=== PATIENT | male | born 1935 | race Caucasian/White ===

== ENCOUNTER 2017-03-07 09:22 | Emergency (ER) | payer MEDICARE ==
[2017-03-07 09:24] VITALS: BMI 25.0
[2017-03-07 09:25] VITALS: BP 165/71; PULSE 59; RESP 19; TEMP 98.6; O2SAT 98
[2017-03-07] MEDS ORDERED: Liquid Adhesive TOP STA (09:42)
--- NOTE | 2017-03-07 10:03 | ED PDOC ---
HPI: Trauma/Fall - HPI Time Seen by Provider: 03/07/17 09:33 Chief Complaint (Provider): fall History Per: Patient History/Exam Limitations: no limitations Onset/Duration Of Symptoms: Mins (prior to arrival ) Additional Complaint(s): Carlton Guallpa is an 81 year old male, with a previous medical history of lung cancer and hypertension, who presents to the ED via EMS after sustaining a fall prior to arrival. Patient denies any loss of consciousness, headache, visual changes, changes in gait, changes in speech, nausea, vomiting, numbness or tingling. Patient reports tetanus is up to date. Patient reports tripping and falling on a parked car sustaining lacerations to the head. PMD: none provided Past Medical History Reviewed: Historical Data, Nursing Documentation, Vital Signs Vital Signs: Last Vital Signs Temp 98.6 F 03/07/17 09:24 Pulse 59 L 03/07/17 09:24 Resp 19 03/07/17 09:24 BP 165/71 H 03/07/17 09:24 Pulse Ox 98 03/07/17 10:24 - Medical History PMH: HTN Other PMH: lung cancer - Family History Family History: States: Unknown Family Hx - Allergies Allergies/Adverse Reactions: Allergies Allergy/AdvReac Type Severity Reaction Status Date / Time No Known Allergies Allergy Verified 03/07/17 09:41 Review of Systems ROS Statement: Except As Marked, All Systems Reviewed And Found Negative Eyes: Negative for: Vision Change Gastrointestinal: Negative for: Nausea, Vomiting Neurological: Negative for: Weakness, Numbness, Change in Speech, Confusion, Headache Physical Exam - Reviewed Nursing Documentation Reviewed: Yes Vital Signs Reviewed: Yes - Physical Exam Appears: Positive for: Well, Non-toxic, No Acute Distress Head Exam: Positive for: NORMAL INSPECTION, NORMOCEPHALIC. Negative for: ATRAUMATIC (4 cm horizontal laceration right side of the forehead. 1 cm superficial laceration underneath first laceration. superficial abrasions noted to the right cheek with no tenderness ) Skin: Positive for: Normal Color, Warm, Dry Eye Exam: Positive for: Normal appearance, EOMI, PERRL. Negative for: Nystagmus Neck: Positive for: Normal, Painless ROM, Supple Cardiovascular/Chest: Positive for: Regular Rate, Rhythm Respiratory: Positive for: CNT, Normal Breath Sounds Gastrointestinal/Abdominal: Positive for: Normal Exam, Bowel Sounds, Soft. Negative for: Tenderness Extremity: Positive for: Normal ROM (of all extremities ), Capillary Refill (< 2 seconds), Other (superficial abrasion to the right knee with no tenderness). Negative for: Deformity Neurologic/Psych: Positive for: Alert, bread distributor II-XII (intact ), Oriented, Cerebellar Tests (good). Negative for: Motor/Sensory Deficits - ECG O2 Sat by Pulse Oximetry: 98 (ra) Pulse Ox Interpretation: Normal Medical Decision Making Medical Decision Making: Initial Impression: head injury and laceration Initial Plan: * CT Head w/o contrast * CT cervical spin w/o contrast * dermabond * reevaluation 10:32 CT head FINDINGS: HEMORRHAGE: No intracranial hemorrhage. BRAIN: Small foci of encephalomalacia at the bilateral basal ganglia are larger and more on the right suggestive of old lacunar infarcts. Moderate atrophy. Moderate white matter changes suggestive but nonspecific for chronic microvascular ischemic disease. VENTRICLES: Unremarkable. No hydrocephalus. CALVARIUM: Unremarkable. PARANASAL SINUSES: Unremarkable as visualized. No significant inflammatory changes. MASTOID AIR CELLS: Unremarkable as visualized. No inflammatory changes. OTHER FINDINGS: None. IMPRESSION: No evidence of acute intracranial hemorrhage intracranial collection mass effect or midline shift. Moderate atrophy and moderate chronic microvascular white matter ischemic disease. 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 10:56 CT C-spine FINDINGS: VERTEBRAE: No fracture. Normal alignment. No destructive bony lesion. DISCS/SPINAL CANAL/NEURAL FORAMINA: Moderate degenerative disc changes. Multilevel narrowing of the intervertebral disc is spaces more prominent at C6-C7. Osteophyte disc bulging complex at C6- C7 associated with mild spinal and neural foraminal narrowing. PARASPINAL SOFT TISSUES: Unremarkable. OTHER FINDINGS: [id number] emphysematous changes at the lung apices. IMPRESSION: No evidence of acute fracture or dislocation. Moderate spondylosis more prominent at C6-C7. [id number] emphysematous changes at the lung apices. Scribe Attestation: Documented by Amy Ramos, acting as a scribe for Amy Mcgee MD. Provider Scribe Attestation: All medical record entries made by the Scribe were at my direction and personally dictated by me. I have reviewed the chart and agree that the record accurately reflects my personal performance of the history, physical exam, medical decision making, and the department course for this patient. I have also personally directed, reviewed, and agree with the discharge instructions and disposition. Disposition - Clinical Impression Clinical Impression: Head injury, Forehead laceration - Disposition Condition: STABLE Additional Instructions: FOLLOW-UP WITH PMD WITHIN 2 DAYS FOR REEVALUATION. Instructions: Head Injury (ED), Skin Adhesive Care (ED), Facial Laceration (ED) Procedure: Wound Repair - Time Performed Time Performed: 10:00 - Time Out Time Out: Side verified, Site verified, Patient ID confirmed, Sterile procedures obs. - Performed by Performed by: Attending Physician - Indications Indication(s):: Laceration (4 cm horizontal laceration and 1 cm superficial laceration underneath that) - Location Location:: Right (forehead ) Dimensions Length cm: 4 cm horizontal laceration and 1 cm superficial laceration underneath that - Debris Debris:: None - Wound repair method Nawaf:: Tissue glue (dermabond )
--- NOTE | 2017-03-07 10:34 | CT ---
PROCEDURE: CT HEAD WITHOUT CONTRAST. HISTORY: Head injury COMPARISON: None available. TECHNIQUE: Axial computed tomography images were obtained through the head/brain without intravenous contrast. Radiation dose: Total exam DLP = 816.69 mGy-cm. This CT exam was performed using one or more of the following dose reduction techniques: Automated exposure control, adjustment of the mA and/or kV according to patient size, and/or use of iterative reconstruction technique. FINDINGS: HEMORRHAGE: No intracranial hemorrhage. BRAIN: Small foci of encephalomalacia at the bilateral basal ganglia are larger and more on the right suggestive of old lacunar infarcts. Moderate atrophy. Moderate white matter changes suggestive but nonspecific for chronic microvascular ischemic disease. VENTRICLES: Unremarkable. No hydrocephalus. CALVARIUM: Unremarkable. PARANASAL SINUSES: Unremarkable as visualized. No significant inflammatory changes. MASTOID AIR CELLS: Unremarkable as visualized. No inflammatory changes. OTHER FINDINGS: None. IMPRESSION: No evidence of acute intracranial hemorrhage intracranial collection mass effect or midline shift. Moderate atrophy and moderate chronic microvascular white matter ischemic disease. 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
--- NOTE | 2017-03-07 10:58 | CT ---
PROCEDURE: CT Cervical Spine without contrast HISTORY: Head injury COMPARISON: None available. TECHNIQUE: Axial computed tomography images were obtained of the cervical spine without the use of intravenous contrast. Coronal and sagittal reformatted images were created and reviewed. Radiation dose: Total exam DLP = 452.8 mGy-cm. This CT exam was performed using one or more of the following dose reduction techniques: Automated exposure control, adjustment of the mA and/or kV according to patient size, and/or use of iterative reconstruction technique. FINDINGS: VERTEBRAE: No fracture. Normal alignment. No destructive bony lesion. DISCS/SPINAL CANAL/NEURAL FORAMINA: Moderate degenerative disc changes. Multilevel narrowing of the intervertebral disc is spaces more prominent at C6-C7. Osteophyte disc bulging complex at C6-C7 associated with mild spinal and neural foraminal narrowing. PARASPINAL SOFT TISSUES: Unremarkable. OTHER FINDINGS: [id number] emphysematous changes at the lung apices. IMPRESSION: No evidence of acute fracture or dislocation. Moderate spondylosis more prominent at C6-C7. [id number] emphysematous changes at the lung apices.
== END 2017-03-07 12:11 | disposition home or self-care (01) ==
LOC: H.ER 09:22
DX: S09.90XA Unspecified injury of head, initial encounter (principal); S01.81XA Laceration without foreign body of other part of head, initial encounter; W19.XXXA Unspecified fall, initial encounter; Y92.89 Other specified places as the place of occurrence of the external cause; I10 Essential (primary) hypertension; Z85.118 Personal history of other malignant neoplasm of bronchus and lung